=== PATIENT | male | born 1940 | race Caucasian/White ===

== ENCOUNTER → 2018-01-01 | Outpatient (CLI) | payer OTHER ==
[~2018-01-01] MED LIST: IOPAMIDOL (ISOVUE-300) 100 ML BTL ONE
== END ==
LOC: FIMAGING 10:52
PROVIDERS: ATTEND Internal Medicine Infectious Disease
DX: I81 Portal vein thrombosis (principal); K86.2 Cyst of pancreas; R88.8 Abnormal findings in other body fluids and substances; Z90.89 Acquired absence of other organs
CPT/HCPCS: 74177; Q9967

== ENCOUNTER 2018-01-03 07:04 | Day surgery (SDC) | payer OTHER ==
[~2018-01-03 07:04] MED LIST changes: +FLUMAZENIL 0.5 MG/5 ML MDV IVP PRN; -IOPAMIDOL (ISOVUE-300) 100 ML BTL ONE; +MIDAZOLAM 2 MG/2 ML VIAL IVP PRN; +NALOXONE HCL 0.4 MG/ML INJ IVP PRN; +NS 1,000 ML IV SCH; +fentaNYL 100 MCG/2 ML INJ IVP PRN
[2018-01-03 07:52] LABS: INR 1.29 (0.83-1.16); PROTIME(PATIENT) 16.3 SEC (12.0-15.0)
[2018-01-03] MEDS ORDERED: LIDOCAINE 1% 300 MG/30 ML SDV ONE (08:02)
[2018-01-03] MEDS ORDERED: NALOXONE HCL 0.4 MG/ML INJ ONE (08:04)
[2018-01-03] MEDS ORDERED: FLUMAZENIL 0.5 MG/5 ML MDV IVP ONE (08:04)
[2018-01-03] MEDS ORDERED: fentaNYL 100 MCG/2 ML INJ ONE (08:05)
[2018-01-03] MEDS ORDERED: MIDAZOLAM 2 MG/2 ML VIAL ONE (08:05)
[2018-01-03] MEDS ORDERED: ACETAMINOPHEN 325 MG TAB PO PRN (09:49)
[2018-01-03] MEDS ORDERED: ONDANSETRON 4 MG/2 ML VIAL IVP PRN (09:49)
[2018-01-03 11:07] VITALS: BP 106/68
--- NOTE | 2018-01-03 12:50 | PDRADPRE ---
Radiology History & Physical Indication for procedure: abscess Surgical history: Appendectomy Home medications: Acetaminophen [Tylenol 325mg (*)] 325 mg PO Q8HRS PRN 11/15/17 [Last Taken 12/30] Latanoprost 0.005% [Xalatan 0.005% (*)] 1 drops EACHEYE HS 11/15/17 [Last Taken 01/02/18 22:00] Levothyroxine [Synthroid 175 mcg (*)] 125 mcg PO DAILY06 11/15/17 [Last Taken 06:30] amLODIPine BESYLATE [Norvasc 5 mg (*)] 2.5 mg PO DAILY 01/02/18 [Last Taken 06/18 06:30] Allergies/Adverse Reactions: No Known Allergies Allergy (Verified 11/15/17 14:24) Mental status: A&Ox3 Heart exam: regular rate and rhythm Lungs exam: clear to auscultation Mallampati Score: Class 1
--- NOTE | 2018-01-03 12:50 | PDPROPOC ---
Sedation Plan of Care Sedation Plan of Care: vital signs stable, mental status noted, patient educated of risks, benefits, alternatives, patient can tolerate sedation ASA Classification: ASA 1 Planned drugs: fentanyl, midazolam Mallampati Score: Class 1 Mallampati Reference Image: Patient passed 3-3-2 rule?: Yes
--- NOTE | 2018-01-03 12:53 | PDRADPN ---
Radiology Procedure Note Date of Procedure: 01/03/18 Radiologist: Daniel Kellogg Anesthesia: IV Sedation, Local (Specify) Pre-op Diagnosis: Complex collections RLQ Post-op Diagnosis: Same Indication: Possible abscess. May need antibiotics Procedure: CT aspiration fluid collections RLQ Finding(s): Small volume, 3-4mL yellow thick purulent fluid aspirated Inf/Abcess present in the surg proc area at time of surgery?: Yes Depth: Organ Space (Right lower quadrant pericolonic) EBL: Minimal Specimen(s): 3-4 mL yellow thick purulent fluid aspirated
== END 2018-01-03 10:57 | disposition home or self-care (01) ==
LOC: FIMAGING 07:04
PROVIDERS: ATTEND Radiology Diagnostic Radiology
PROC: 0W9G3ZX Drainage of Peritoneal Cavity, Percutaneous Approach, Diagnostic (ICD-10-PCS; principal; 2018-01-03 09:45)
DX: R19.8 Other specified symptoms and signs involving the digestive system and abdomen (principal)
CPT/HCPCS: J2250; J2310; J3010

== ENCOUNTER → 2018-01-08 | Outpatient (CLI) | payer OTHER ==
[~2018-01-08] MED LIST changes: -FLUMAZENIL 0.5 MG/5 ML MDV IVP PRN; +IOPAMIDOL (ISOVUE-300) 100 ML BTL ONE; -MIDAZOLAM 2 MG/2 ML VIAL IVP PRN; -NALOXONE HCL 0.4 MG/ML INJ IVP PRN; -NS 1,000 ML IV SCH; -fentaNYL 100 MCG/2 ML INJ IVP PRN
== END ==
LOC: FIMAGING 13:54
PROVIDERS: ATTEND Internal Medicine Infectious Disease
DX: R78.81 Bacteremia (principal); R19.00 Intra-abdominal and pelvic swelling, mass and lump, unspecified site
CPT/HCPCS: 74177; Q9967

== ENCOUNTER → 2018-01-22 | Outpatient (CLI) | payer OTHER | LOC: FIMAGING 14:46 | PROVIDERS: ATTEND Internal Medicine Infectious Disease | DX: Z09 Encounter for follow-up examination after completed treatment for conditions other than malignant neoplasm (principal); K86.2 Cyst of pancreas; Z87.19 Personal history of other diseases of the digestive system | CPT/HCPCS: 74177; Q9967 ==